=== PATIENT | male | born 1950 | race Caucasian/White ===

== ENCOUNTER 2017-01-31 12:18 | Day surgery (SDC) | payer MEDICARE ==
[~2017-01-31] VITALS: Ht 180.3 cm; Wt 89.9 kg
[~2017-01-31 12:18] MED LIST: ATOR10TA15 PO; CARV12.52 PO; FURO1TAB60 PO; GLIM4TAB PO; LISI2.5T3 PO; METF1000 PO; POTA10TA8 PO
[2017-01-31 13:19] VITALS: BP 155/88; PULSE 62; RESP 18; TEMP 97.8; O2SAT 99
[2017-01-31] MEDS ORDERED: SODIUM CHLORID 0.9% 500 ML IV PRN (13:30)
[2017-01-31] MEDS: NS 1000 ML IV SCH (13:30)
[2017-01-31] MEDS ORDERED: LACTATED RINGER'S 1000 ML IV PRN (13:30)
[2017-01-31] MEDS ORDERED: Hold AM Insulin & AM Hypoglycemic medications in diabetic patients PRN (13:30)
[2017-01-31] MEDS ORDERED: ceFAZolin 2 GM PREMIX 50 ML IV SCH (13:30)
[2017-01-31] MEDS ORDERED: CHLORHEXIDINE GLUCONATE 2 % 1 PACK (2 CLOTHS) TOPICAL SCH (13:30)
[2017-01-31] MEDS ORDERED: MUPIROCIN 2% OINT 1 APPLIC/GM SYR NASAL SCH (13:30)
[2017-01-31] MEDS ORDERED: POVIDONE IODINE 5% (ANTISEPSIS KIT) 4 APPLICATIONS EACH NARE SCH (13:30)
[2017-01-31] MEDS ORDERED: VANCOMYCIN 1000 MG/NS 250 ML IV SCH ×2 (13:30)
[2017-01-31] MEDS ORDERED: NO Heparin, Lovenox, Coumadin at least 12 hours prior to procedure. PRN (13:30)
[2017-01-31 13:40] LABS: AUTOMATED NEUTROPHIL # 4.3 TH/MM3 (1.8-7.7); BASOPHIL # 0.1 TH/MM3 (0-0.2); BASOPHIL % 0.7 % (0.0-2.0); EOSINOPHIL # 0.1 TH/MM3 (0-0.4); EOSINOPHIL % 1.7 % (0.0-4.0); HEMATOCRIT 39.6 % (39.0-51.0); HEMO FLAGS DIFF FINAL; LYMPH % 30.8 % (9.0-44.0); LYMPHOCYTE # 2.2 TH/MM3 (1.0-4.8); MEAN CELL VOLUME 88.5 FL (80.0-100.0); MEAN CORPUSCULAR HEMOGLOBIN 30.2 PG (27.0-34.0); MEAN CORPUSCULAR HGB CONC 34.2 % (32.0-36.0); MONO % 6.9 % (0.0-8.0); NEUT % 59.9 % (16.0-70.0); PLATELET COUNT 266 TH/MM3 (150-450); RED BLOOD COUNT 4.47 MIL/MM3 (4.50-5.90); RED CELL DISTRIBUTION WIDTH 13.3 % (11.6-17.2); WHITE BLOOD COUNT 7.2 TH/MM3 (4.0-11.0)
[2017-01-31] MEDS ORDERED: METOPROLOL TARTRATE 25 MG TAB PO PRN (13:45)
[2017-01-31] MEDS ORDERED: CHLORHEXIDINE GLUCONATE 2 % 1 PACK (2 CLOTHS) TOPICAL PRN (13:45)
[2017-01-31] MEDS ORDERED: INSULIN HUMAN REGULAR 1,000 UNITS/10 ML VIAL SQ PRN (13:45)
[2017-01-31] MEDS ORDERED: POVIDONE IODINE 5% (ANTISEPSIS KIT) 4 APPLICATIONS EACH NARE PRN (13:45)
[2017-01-31 13:49] LABS: APTT (PATIENT) 30.3 SEC (24.3-30.1); PROTHROMBIN TIME - PATIENT 10.8 SEC (9.8-11.6)
[2017-01-31 14:04] LABS: BICARBONATE 25.6 MEQ/L (21.0-32.0); POTASSIUM 4.4 MEQ/L (3.5-5.1)
[2017-01-31] MEDS ORDERED: VANCOMYCIN 500 MG VIAL ONE (17:05)
[2017-01-31] MEDS ORDERED: LIDOCAINE HCL 2% 50 ML VIAL ONE (17:05)
[2017-01-31 19:00] VITALS: BP 123/76; PULSE 73; RESP 24; TEMP 97; O2SAT 99
[2017-01-31] MEDS ORDERED: MIDAZOLAM HCL 2 MG/2 ML VIAL ONE (19:05)
[2017-01-31] MEDS ORDERED: NS 500 ML (EXCEL BAG) 500 ML BAG IV ONE (19:52)
[2017-01-31] MEDS ORDERED: PROPOFOL 200 MG/20 ML AMP IV ONE (19:52)
[2017-01-31 20:00] VITALS: BP 123/76; PULSE 73; RESP 24; TEMP 97; O2SAT 99
[2017-01-31] MEDS ORDERED: SODIUM CHLOR 0.9% 1000 ML INJ 1,000 ML IV SCH (20:35)
[2017-01-31] MEDS ORDERED: MISC INFORMATION XX ONE (20:45)
[2017-01-31] MEDS ORDERED: ACETAMINOPHEN/CODEINE 300 MG/30 MG TAB PO PRN (20:45)
[2017-01-31 21:00] VITALS: PULSE 72
[2017-01-31] MEDS ORDERED: PILL SPLITTER OTHER PRN (21:00)
[2017-01-31] MEDS ORDERED: ATORVASTATIN 10 MG TAB PO SCH (21:00)
[2017-01-31] MEDS: CARVEDILOL 12.5 MG TAB PO SCH (21:02)
--- NOTE | 2017-01-31 21:12 | RADRPT ---
EXAM DATE/TIME: 01/31/2017 20:52 [place] COMPARISON: CHEST SINGLE AP, August 01, 2016, 13:26. INDICATIONS : Evaluate for pneumothorax post pacemaker placement. MEDICAL HISTORY : None. SURGICAL HISTORY : CABG. Pacemaker. ENCOUNTER: Initial ACUITY: 1 day PAIN SCORE: Non-responsive. LOCATION: Bilateral chest FINDINGS: Pacemaker device is noted with control pack over the left chest. There is no evidence of pneumothorax post placement. There is persistent mild vascular congestion and perihilar edema. Cardiac contours a re grossly stable. CONCLUSION: Satisfactory pacer insertion with no pneumothorax Jerrell Dockery MD on January 31, 2017 at 21:09 Board Certified Radiologist. This report was verified electronically.
[2017-01-31 22:00] VITALS: PULSE 70
[2017-01-31 23:00] VITALS: PULSE 70
[2017-01-31] MEDS: ceFAZolin 2 GM PREMIX 50 ML IV SCH (23:54)
[2017-02-01] VITALS (14 sets, daily range): BP systolic 118–140; BP diastolic 64–80; PULSE 64–82; RESP 16–20; TEMP 97.2–98.2; O2SAT 95–96
[2017-02-01] MEDS ORDERED: VANCOMYCIN INJ 1,000 MG in SODIUM CHLOR 0.9% 250 ML INJ 250 ML IV ONE (05:00)
[2017-02-01] MEDS ORDERED: GLIMEPIRIDE 4 MG TAB PO SCH (07:00)
[2017-02-01 07:14] LABS: BICARBONATE 22.8 MEQ/L (21.0-32.0); POTASSIUM 4.2 MEQ/L (3.5-5.1)
[2017-02-01 07:28] LABS: HDL CHOLESTEROL 29.9 MG/DL (40.0-60.0)
[2017-02-01] MEDS ORDERED: NON-FORMULARY DRUG (Lisinopril 2.5 MG) PO SCH (09:00)
[2017-02-01] MEDS ORDERED: LISINOPRIL 5 MG TAB PO SCH (09:00)
[2017-02-01] MEDS ORDERED: FUROSEMIDE 40 MG TAB PO SCH (09:00)
[2017-02-01] MEDS ORDERED: metFORMIN HCL 500 MG TAB PO SCH (09:00)
[2017-02-01] MEDS ORDERED: POTASSIUM CHLORIDE 10 MEQ CONTROLLED RELEASE TAB PO SCH (09:00)
[2017-02-01] MEDS: ceFAZolin 2 GM PREMIX 50 ML IV SCH (09:24)
[2017-02-01] MEDS: CARVEDILOL 12.5 MG TAB PO SCH (09:25)
[2017-02-01] MEDS: NS 1000 ML IV SCH (13:34)
--- NOTE | 2017-02-01 13:55 | EKG ---
Date Performed: 01/31/2017 Time Performed: 13:22:16 PTAGE: 66 years EKG: Sinus rhythm with borderline 1st degree A-V block. Left axis deviation Left bundle branch block Compared to previ ous tracing, the patient has developed a complete left bundle branch block. In that setting, anterio r MD cannot be excluded. Clinical correlation will be important. Abnormal ECG PREVIOUS TRACING : 08/01/2016 13.01 DOCTOR: Carrie Hensley Interpretating Date/Time 02/01/2017 13:53:28
[2017-02-01] MEDS ORDERED: LISI2.5T3 PO (14:07)
--- NOTE | 2017-02-01 14:28 | PD.CARD.PN ---
Subjective Subjective Remarks PT STABLE P BIV ICD CXR OK NO PTX INCISION DRY OK TO DC CV [facility] LOST HIS CLOTHES F/U DR BERMUDEZAT 1 WEEK Objective Vital Signs / I&O Vital Signs Date Time Temp Pulse Resp B/P Pulse Ox O2 Delivery O2 Flow Rate FiO2 02/01/17 14:04 75 02/01/17 13:03 76 02/01/17 12:00 82 02/01/17 11:00 79 02/01/17 11:00 97.6 79 16 121/64 96 02/01/17 10:00 80 02/01/17 09:00 82 02/01/17 08:00 97.2 71 18 137/80 95 02/01/17 08:00 82 02/01/17 07:00 67 02/01/17 06:00 64 02/01/17 04:00 98.2 66 20 140/79 96 02/01/17 04:00 66 02/01/17 02:00 64 02/01/17 01:00 66 02/01/17 00:00 70 02/01/17 00:00 97.8 78 20 118/66 96 01/31/17 23:00 70 01/31/17 22:00 70 01/31/17 21:00 72 01/31/17 20:00 97.0 73 24 123/76 99 I/O 01/31/17 01/31/17 01/31/17 02/01/17 02/01/17 02/01/17 07:00 15:00 23:00 07:00 15:00 23:00 Intake Total 809 ml Output Total 375 ml Balance 434 ml Intake Oral 240 ml IV Total 569 ml Output Urine Total 375 ml Laboratory Laboratory Tests Test 02/01/17 05:45 Sodium Level 141 MEQ/L Potassium Level 4.2 MEQ/L Chloride Level 109 MEQ/L Carbon Dioxide Level 22.8 MEQ/L Anion Gap 9 MEQ/L Blood Urea Nitrogen 18 MG/DL Creatinine 1.33 MG/DL Estimat Glomerular Filtration 54 ML/MIN Rate Random Glucose 155 MG/DL Calcium Level 8.1 MG/DL Triglycerides Level 273 MG/DL Cholesterol Level 216 MG/DL LDL Cholesterol 132 MG/DL HDL Cholesterol 29.9 MG/DL Cholesterol/HDL Ratio 7.22 RATIO Babak Whitley DO February 01, 2017 14:28
--- NOTE | 2017-02-02 10:01 | MR ---
cc: MARY BLUM DATE: 01/31/2017 INDICATION Congestive heart failure, class III, ischemic cardiomyopathy, ejection fraction 25%, diagnosed over 3 months ago, echocardiogram showed severe left ventricular dysfunction with ejection fraction of 25%, coronary artery disease, history of coronary bypass. PROCEDURE PERFORMED 1. Comprehensive electrophysiology study with right atrial and right ventricular pacing and sensing. 2. Coronary sinus cannulation with coronary sinus pacing and sensing. ACCESS SITE Right femoral vein. EQUIPMENT USED Quadripolar catheters x 3. COMPLICATIONS None. BLOOD LOSS Less than 10 ccs. METHOD OF HEMOSTASIS Manual compression. RESULTS 1. A baseline EKG showed sinus rhythm, left axis, left bundle branch block. 2. Baseline intervals (milliseconds) RR 966, KY 228, QRS 152, QT 442, PTC 450, AH 114, HV 86. 3. Coronary sinus stimulation. Coronary sinus stimulation was performed. No arrhythmias were induced. 4. Right atrial programmed stimulation: Right atrial programmed stimulation was performed. AV Wenckebach was 470 milliseconds. 5. Right ventricular programming stimulation: The right ventricular programmed stimulation was performed from right ventricular apex. RVRP 600/290/320. 500/280/310. 400/260/290. CLOSEST COUPLING INTERVALS 600/320/220. 500/310/210. 400/290/190. 600/320/230/180. 500/310/240/180. 400/290/220/180. Arrhythmias induced: None. DIAGNOSIS 1. No inducible ventricular arrhythmias. 2. No inducible atrial arrhythmias. 3. HV interval 86 milliseconds. DISPOSITION Mr. Yun will undergo the placement of dual-chamber biventricular defibrillator. MD KELY Newton/TOMASZ /7:51 PM /9:18 AM EMILEE
--- NOTE | 2017-02-03 10:05 | MR ---
cc: MARY BLUM MD DATE 01/31/17 INDICATION Congestive heart failure, class III, ischemic cardiomyopathy diagnosed over three months ago, ejection fraction 25%. The patient has been on maximum tolerated guideline directed medical therapy for over three months. Coronary artery disease, history of remote coronary bypass in 1999, atrial lead placed for atrial tachyarrhythmia differentiation. PROCEDURE PERFORMED 1. Placement of [employer] Gigi dual chamber biventricular defibrillator 2. Testing of [employer] Gigi dual chamber biventricular defibrillator system ACCESS SITE Left subclavian vein. EQUIPMENT USED Generator St. Gigi model [id number], dual chamber biventricular defibrillator serial #[id number]. Right atrial lead - St. Gigi model 1688TC - 46 cm atrial lead, serial #[id number]. Right ventricular lead - [employer]. Gigi model 7121Q - 65 cm screw-in right ventricular lead, serial #[id number]. Coronary sinus lead - [employer]. Gigi model 1458Q-86 coronary sinus lead, serial #[id number]. LEAD TESTING Right atrial lead - P wave 2.1 millivolts. Lead impedance 610 ohms. Pacing threshold 0.75 volts at 0.5 milliseconds. Right ventricular lead - R wave 11.7 millivolts. Lead impedance 600 ohms. Pacing threshold 0.5 volts at 0.5 milliseconds. Pacing at 10 volts. No diaphragmatic stimulation. Left ventricular lead - lead impedance 860 ohms, pacing threshold 0.75 volts at 0.5 milliseconds. Pacing at 10 volts. No diaphragmatic stimulation. Ventricular fibrillation was induced and terminated with a single 20J shock with lead impedance of 44 ohms. PARAMETERS Mode: DDDR, lower rate 60, upper rate 120. DIAGNOSES 1. Successful placement of [employer] Gigi dual chamber biventricular defibrillator. 2. Successful testing of [employer] Gigi dual chamber biventricular defibrillator system. 3. Defibrillation threshold of 20 joules or less. DISPOSITION Mr. Yun will be monitored on telemetry after his procedure. We will continue therapy with antibiotics. He will discharged tomorrow if stable. He was given instructions concerning his wound care. I will see him back for a wound check and chronic device reprogramming in our office within two weeks. MD KELY Newton/ /7:56 PM /10:01 AM MTDHarriet
--- NOTE | 2017-02-04 12:24 | CATHPROC ---
[facility] HIS Report Study Information Study Number Scheduled Start Study Start 0923-17 01/31/2017 Jan 31 2017 3:59PM Referring Institution Admit Source Facility Department 1 Other [facility] - Radiation Physicist Physician and Clinical Staff Initial Rafy Lakhani Central Processing Technician Deena Henry,RT(R) TECH2 Other Anesthesia, MANUFACTURING SOFTWARE ENGINEER Recorder Emerson Montgomery,RN Scrub Pauline Garzon RCIS Equipment Time Screw Remover Description Size Mfg Part Number Used/Scraped DERMABOND, ADHESIVE SKIN [id number] 16:02 CORDIS/PACER * Used GLUE MINI *[id number]-1103 16:02 MEDLINE INDUSTRIES SUTURE, STRIP PLUS 1/2" * Used *[id number] 16:02 MEDLINE PACER SHARP, LIMB * 2530 Used [id number] 16:02 MEDLINE PACER PACK, PACER CUSTOM * Used *[id number] SUTURE, 0 ETHIBOND [CT1] (CX21D), 8pk SUTURE, 2-0 VICRYL [CT1] ([id number]) SUTURE, 2-0 VICRYL [CT1] (QYQ632F) [id number] 16:02 [employer],WARM AIR CCL * Used *[id number] 16:35 [employer] MEDICAL CATHETER, JSN, QUAD FR 5 Used *[id number] 174695 16:35 [employer] MEDICAL CATHETER, JSN, QUAD FR 5 Used *[id number] 910315 16:35 [employer] MEDICAL CATHETER, JSN, QUAD FR 5 Used *[id number] 893687 16:33 [employer] MEDICAL SHEATH, EPS, FR5 FAST CATH FR 5 Used *[id number] 057156 16:34 [employer] MEDICAL SHEATH, EPS, FR5 FAST CATH FR 5 Used *[id number] 042259 16:34 [facility] MEDICAL SHEATH, EPS, FR5 FAST CATH FR 5 Used *[id number] [facility] PAD, ELECTROSURGICAL 16:02 * [id number] Used SURGICAL GROUNDING ORANGE 16:02 [employer] QUENTIN. ELECTRODE, PRO-PADZ BIPHASIC * [id number] Used Medication Medication Total Dose (Bolus/Oral) Medication Total Dosage/Unit 1% XYLOCAINE 20 mL Medications (Bolus/Oral) Medication Time Given Dosage/Unit Administered By Reason 1% XYLOCAINE 01/31/2017 4:26:18 PM 20 mL Quadrat, [place] 20 mL 1% XYLOCAINE given by Rafy Vázquez in Right Groin via Subcutaneous. Chronological Log Time Study Chronological Log 15:20:00 Patient Name, D.O.B, / Armband Verified By R.N. 15:25:00 Patient arrived via Bed. 15:25:15 Anesthesia at bedside. Assumes care of patient. 16:02:24 Patient has been NPO for More than 6Hrs. 16:02:25 Skin Breakdown-NONE PER PT 16:02:26 Patient Warmer Placed on the Table. 16:02:27 Disposable Defibrillator Pads Placed On Patient. 16:02:28 Leeanne Prominences Protected 16:02:42 Table restraints applied according to hospital policy 16:02:47 Bilateral groins prepped with 2% chlorhexidine, and with a 3 min. waiting time. Time Out. Correct patient, procedure, procedure equipment, site and side verified with physici an present. Time 16:25:59 concurred by MD, individual staff and MANUFACTURING SOFTWARE ENGINEER. Time Out #2 - Consents verified, patient in correct position, all results are labled and displ ayed, safety precautions 16:26:00 taken, antibiotics administered. Time out concurred by MD, individual staff and MANUFACTURING SOFTWARE ENGINEER in proced ure 16:26:01 Case Start 16:26:18 20 mL 1% XYLOCAINE given by Rafy Vázquez in Right Groin via Subcutaneous. 16:31:09 A SHEATH, EPS, FR5 FAST CATH FR 5 was advanced into the Fem Vein (right) using the Modifie d Seldinger technique. 16:32:40 A SHEATH, EPS, FR5 FAST CATH FR 5 was advanced into the Fem Vein (right) using the Modifie d Seldinger technique. 16:32:41 A SHEATH, EPS, FR5 FAST CATH FR 5 was advanced into the Fem Vein (right) using the Modifie d Seldinger technique. A CATHETER, JSN, QUAD FR 5 was advanced vis Fem Vein (right) and placed in the CS. Placement w as visually 16:34:10 confirmed under fluoroscopy. A CATHETER, JSN, QUAD FR 5 was advanced vis Fem Vein (right) and placed in the RVA. Placement was visually 16:35:22 confirmed under fluoroscopy. A CATHETER, JSN, QUAD FR 5 was advanced vis Fem Vein (right) and placed in the HRA. Placement was visually 16:35:38 confirmed under fluoroscopy. 16:38:51 EPS IN PROGRESS 16:50:31 EPS DONE 16:50:53 Catheter was removed 16:51:18 Sheath(s) left in place, will be removed in Holding Area 16:51:23 Case End, CONTINUES TO BI V ICD IMPLANT 16:52:30 EP Procedure was performed. End Study - Contrast Media Used In Study Contrast Total Opened (mL) Total Used (mL) Total Wasted (mL) Unspecified 0 0 0 End Study - Radiation Exposure Fluoro Time (minutes) 2.5 End Study - Patient Disposition Complications Transferred To Telemetry Bed
--- NOTE | 2017-02-04 12:25 | CATHPROC ---
[facility] HIS Report Study Information Study Number Admission Scheduled Start Study Start 923-17 01/31/2017 01/31/2017 Jan 31 2017 5:28PM Referring Institution Admit Source Facility Department 1 Other [facility] Manufacturing Automation Engineer Physician and Clinical Staff Initial Rafy Lakhani Hall Coordinator Pauline Garzon RCIS Other Anesthesia, CAPACITOR INSPECTOR Recorder Emerson Montgomery,CALVIN Scrub Deena Henry,RT(R) TECH2 Procedures Performed Procedure Location (Site) Vessel Name Lead Insertion Wire insertion Subclav. Vein (Lft Subclavian Vein Equipment Time Piano Accompanist Description Size Mfg Part Number Used/Scraped WIRE, HI TORQUE ALLSTAR 18:38 [employer] 190CM [id number] Used 190CM 18:09 [employer] MEDICAL WIRE, 3MMJ .035 180CM 180CM [id number] Used 17:55 [employer] MEDICAL PACER SAFE SHEATH, FR7, 13CM FR 7 [id number]-[id number] Used 17:58 [employer] MEDICAL PACER SAFE SHEATH, FR7, 13CM FR 7 CLS-1007 Used 17:34 Needle Sponge Count 2 22 Used 17:35 Needle Sponge Count 30 1 Used 17:35 Needle Sponge Count 7 7 Used CATHETER, DECAPOLAR CSL [id number] 18:33 [employer] FR 6 Used RESPONSE *[id number] DEFIBRILLATOR, QUADRA 19:14 [employer] VVVED-DDDRV [id number] Used ASSURA LEAD, DURATA ACTIVE FIXATION 7121Q-65 17:46 [employer] 65CM Used 7121/65 *[id number] LEAD, QUARTET QUADRIPOLAR 18:46 [employer] 86CM 1458Q-86CM Used 1458Q LEAD, TENDRIL SDX 1688TC 1688TC/46CM 17:57 [employer] 46CM Used 46CM *[id number] 18:14 [employer] LIVEWIRE, QUAD, MED SWEEP FR 6 [id number] Used Equipment Model, Serial, Lot Number and Expiration Data Description Model Number Serial Number Lot Number Expiration Date LEAD, DURATA ACTIVE FIXATION 7121q-65 [id number] 10-30-2017 7121/65 LEAD, TENDRIL SDX 1688TC 46CM 1688tc [id number] 06-21-2019 Medication Medication Total Dose (Bolus/Oral) Medication Total Dosage/Unit 2% XYLOCAINE 50 mL Medications (Bolus/Oral) Medication Time Given Dosage/Unit Administered By Reason 2% XYLOCAINE 01/31/2017 5:31:15 PM 50 mL Rafy Vázquez 50 mL 2% XYLOCAINE given by Rafy Vázquez via Subcutaneous. Chronological Log Time Study Chronological Log 17:28:25 Case continues to pacemaker 17:29:13 2% CHLORHEXIDINE GLUCONATE WASH AND NASAL SWIPE DONE PRIOR TO PROCEDURE. Time Out. Correct patient, procedure, procedure equipment, site and side verified with physici an present. Time 17:29:21 concurred by MD, individual staff and CAPACITOR INSPECTOR. First Sponge And Instrument Count Done by Deena Henry, RT(R) TECH2. 17:30:21 Hypo's: 7, Sponges: 30, Bovie/scratch: 2 Sutures: 11, Blades: 2, Instruments: 25, Syveck Patches: ~SYVECK PATCH~ 17:30:37 Case Start 17:31:15 50 mL 2% XYLOCAINE given by Rafy Vázquez via Subcutaneous. 17:32:11 Surgical Incision Made. 17:32:22 for medications and vitals see anesthesia flowsheet 17:36:24 A pocket was created at the L Upper Chest. 17:38:03 Vascular access was obtained in the Subclav. Vein (Lft. 17:38:07 Vascular access was obtained in the Subclav. Vein (Lft. 17:39:00 Vascular access was obtained in the Subclav. Vein (Lft. 17:40:47 A SAFE SHEATH, FR7, 13CM FR 7 was advanced into the Subclav. Vein (Lft using the Percutane ous technique. 17:45:10 A LEAD, DURATA ACTIVE FIXATION 7121/65 65CM was inserted and positioned in the RV. 17:46:22 Lead placement verified under fluoroscopy 17:46:28 The RV lead impedance and threshold being tested. 17:50:47 The RV lead was sutured to the fascia. 17:51:13 A SAFE SHEATH, FR7, 13CM FR 7 was advanced into the Subclav. Vein (Lft using the Percutane ous technique. 17:56:03 A LEAD, TENDRIL SDX 1688TC 46CM 46CM was inserted and positioned in the RA. 17:57:16 Lead placement verified under fluoroscopy 17:59:57 one antibiotic sponge into the pocket 18:03:37 The Atrial lead impedance and threshold is being tested. 18:03:43 The Atrial lead was sutured to the fascia. 18:04:00 A WIRE, 3MMJ .035 180CM 180CM was inserted via Subclav. Vein (Lft. 18:04:42 st Gigi sheath was inserted 18:09:55 wire removed 18:11:03 A MPA-2 INFINITI CATHETER FR 4 was advanced over a wire. contrast was used for injections. A LIVEWIRE, QUAD, MED SWEEP FR 6 was advanced vis Subclav. Vein (Lft and placed in the CS. Paulina cement was 18:13:52 visually confirmed under fluoroscopy. 18:28:56 livewire out 18:29:10 MPA inserted 18:31:00 mpa removed A CATHETER, DECAPOLAR CSL RESPONSE FR 6 was advanced vis Fem Vein (left) and placed in the CS. Placement was 18:32:25 visually confirmed under fluoroscopy. 18:46:34 Wire inserted ALL STAR in CS 18:46:49 Deca removed 18:53:36 A LEAD, QUARTET QUADRIPOLAR 1458Q 86CM was inserted and positioned in the CS/LV. 18:53:45 Lead placement verified under fluoroscopy 19:13:39 The CS/LV lead impedance and threshold is being tested. 19:16:45 A DEFIBRILLATOR, QUADRA ASSURA VVVED-DDDRV was connected and placed in the pocket. 19:24:36 The DFT was Success at 20 Joules, 45 Ohms lead impedance and ~TIME~ ms charge time. 19:24:47 Pocket flushed with antibiotic solution Second Sponge And Instrument Count Done by Deena Henry, RT(R) TECH2. 19:25:16 Hypo's: 7, Sponges: 30, Bovie/scratch: 2 Sutures: 11, Blades: 2, Instruments: 25, Syveck Patches: ~SYVECK PATCH~ 19:27:23 The pocket was closed. final Sponge And Instrument Count Done by Deena Henry, RT(R) TECH2. 19:27:27 Hypo's: 7, Sponges: 30, Bovie/scratch: 2 Sutures: 11, Blades: 2, Instruments: 25, Syveck Patches: ~SYVECK PATCH~ 19:27:36 Implant Procedure was performed. 19:27:42 A Bivent ICD Implant . (Dual) 19:41:00 Case End End Study - Contrast Media Used In Study Contrast Total Opened (mL) Total Used (mL) Total Wasted (mL) Omnipaque 50 20 30 End Study - Radiation Exposure Fluoro Time (minutes) 41.0 End Study - Patient Disposition Complications Transferred To No Telemetry Bed
== END 2017-02-01 16:24 | disposition home or self-care (01) ==
LOC: HSDC 12:18 → HDIC 12:19 → HCIS 20:10 → HSDC 02-01 16:24
PROVIDERS: ATTEND Internal Medicine Interventional Cardiology
DX: I13.0 Hypertensive heart and chronic kidney disease with heart failure and stage 1 through stage 4 chronic kidney disease, or unspecified chronic kidney disease (principal); N18.9 Chronic kidney disease, unspecified; I50.20 Unspecified systolic (congestive) heart failure; I25.5 Ischemic cardiomyopathy; R06.00 Dyspnea, unspecified; I44.7 Left bundle-branch block, unspecified; I47.2 Ventricular tachycardia; E11.9 Type 2 diabetes mellitus without complications; Z79.82 Long term (current) use of aspirin; Z79.84 Long term (current) use of oral hypoglycemic drugs
CPT/HCPCS: 00530; 33225; 33249; 71010; 80048; 80061; 85025; 85610; 85730; 93005; 93620; 93641; C1730; C1769; C1882; C1895; C1898; C1900; J0690; J2250; J3010; J3370; J7030; J7040; J7050; C1779